=== PATIENT | male | born 1970 | race Caucasian/White ===

== ENCOUNTER 2016-07-12 09:13 | Emergency (ER) | payer MEDICARE, MEDICAID ==
[2016-07-12 09:33] VITALS: BMI 28.9
[2016-07-12 10:00] LABS: AUTOMATED BASOPHIL 0.4 % (0-2); AUTOMATED LYMPH 28.5 % (17-44); AUTOMATED MONOCYTE 7.4 % (3-10); AUTOMATED NEUTROPHIL 61.7 % (45-76); MPV 8.1 fL (7.4-10.4)
--- NOTE | 2016-07-12 10:10 | EDPRACDOC ---
- General Information Chief Complaint: Flu-Like Symptoms Stated Complaint: COUGH Time Seen by Provider: 07/12/16 10:05 Mode Of Arrival: Car Home Medications: Home Medications Clonazepam [Klonopin] 1 mg PO HS 01/23/13 Trazodone HCl 300 mg PO HS 01/23/13 Aripiprazole [Abilify] 10 mg PO HS 12/17/15 Lamotrigine [Lamictal] 200 mg PO BID 12/17/15 Dicyclomine HCl [Bentyl] 10 mg PO TID 02/21/16 Prazosin HCl [Minipress] 2 mg PO QHS 02/21/16 Levofloxacin [Levaquin] 500 mg PO DAILY #7 tab 07/12/16 [place] Carbonate 600 mg PO HS 07/12/16 Morphine Sulfate 15 mg PO Q8H PRN 07/12/16 Pantoprazole Sodium [Protonix] 40 mg PO HS 07/12/16 Tussionex [Tussionex Oral Suspension] 5 ml PO BID PRN #120 ml 07/12/16 Allergies/Adverse Reactions: Allergies Allergy/AdvReac Type Severity Reaction Status Date / Time fluoxetine HCl [From Prozac] Allergy Severe Unknown/See Verified 07/12/16 09:32 Comments venom-honey bee Allergy Intermediate Edema-Gener Verified 07/12/16 09:32 [bee venom (honey bee)] alized - History of Present Illness Onset: 2 MONTHS HPI: PT COMPLAINS OF COUGH PROD OF GREEN PHLEGM, SOBR, WORSENING OVER 2 MTHS, HAS HAD "FEVER" ESPECIALLY AT NIGHT, NO N/V/D. Shortness of Breath: Moderate Relevant History: Reports: None Cough: Reports: Productive, Yellow Rhinorrhea: Reports: Clear Ear Symptoms: Reports: None SOB Worsens with: Reports: Coughing SOB Improves with: Reports: Nothing Recently treated infections:: Denies: Otitis media, Pneumonia, URI Associated Signs and symptoms: Reports: Cough, Earache, Fever, Nasal Symptoms. Denies: Headache, Sore Throat, Nausea, Vomiting, Diarrhea, Myalgia, Rash, Pain with head movement, AMS ED Past Medical History - History Reviewed Yes Nurses notes reviewed and agree except as marked - Patient Medical History Cardiac History: Reports: Hypertension, Cardiac Catheterization, Hypercholesterolemia GI/ History: Reports: Ulcer Musculoskeletal History: Reports: Arthritis (hands) Psychological History: Reports: Bipolar Disorder Additional Past Medical History: Chronic back Pain Surgical History: Reports: Cardiac Catheterization - Family Medical History Reports: Hypertension (mulit-family), Diabetes (brother), Cancer (mother ( thyroid,uterine)), Stroke (father), Cardiac Disorders (father ([place])) - Social Medical History Smoking Status: Heavy tobacco smoker (5 or more cigarettes/day or daily pipe/ cigar) ETOH: None Substance Abuse: None EDM Review of Systems - Review of Systems Constitutional: Fever. negative: Chills Eyes: negative: Blurred Vision, Double Vision Ears: Pain. negative: Drainage Throat: Pain Nose: Congestion, Discharge Respiratory: Cough, Shortness of Breath, Wheezing Cardiovascular: negative: Chest Pain, Palpitations Gastrointestinal: negative: Diarrhea, Nausea, Pain, Vomiting Genitourinary: negative: Dysuria, Frequency Neurological: negative: Dizziness, Headache, Numbness, Weakness Musculoskeletal: No Symptoms Reported Integumentary: No Symptoms Reported - Physical Exam Constitutional: Alert (Awake), No apparent distress Oriented to: Time, Person, Place Last recorded Vital Signs: Last Vital Signs Temp 98.3 F 07/12/16 09:28 Pulse 86 07/12/16 09:28 Resp 18 07/12/16 09:28 BP 140/86 07/12/16 09:28 Pulse Ox 92 07/12/16 09:28 Oxygen Pulse Oxygen Saturation 92 O2 Device Room Air Oxygen Flow Rate Fraction of Inspired Oxygen ( FIO2) - HEENT Head: Normal ( normocephalic) Eye Exam: Normal (PERRL, EOMI, Sclera white) Oropharynx: Normal (Pharynx:Moist without exudate,Gums-no swelling) Tympanic Membrane: Normal ENT EAC: Normal TMJ: Normal Nose: No Symptoms Reported (septum midline) Neck: Normal (FROM, trachea at midline) - Respiratory/Cardiovascular Respiratory: Wheezes. negative: Accessory Muscle Use, Retractions Cardiovascular: Normal (RRR without murmur, gallop or rub) - GI Auscultation: Normal (NABS) Palpation: Normal (Soft,No rebound or guarding, non distended) Tenderness: Non tender Olivier's Sign: Negative - Musculoskeletal Back: Normal (Non-Tender) Extremities: Normal (Normal tone, Pulses 2+ No cyanosis or edema, FROM) - Integumentary Skin: Normal, Warm, Dry Lymphatics: Normal (no adenopathy) - Neurologic Memory Impaired: Normal Motor Function: Normal (Normal tone, Pulses 2+ No cyanosis or edema, FROM) Cranial Nerve: Normal (CN II-X11 intact sensation, strength 5/5) Cerebellar: Normal Mood Description: Normal Perception: Normal ED SOB MDM - Differential Diagnosis Differential Diagnosis: Heart Failure, Pulmonary Embolus, Pnuemonia, Pneumothorax - Re-evaluation Re-evaluation 1 Re-evaluation Time: 11:30 (IMPROVED) Re-evaluation 2 Re-evaluation Time: 13:00 (IMPROVED) - Results Result Diagrams: 07/12/16 09:45 07/12/16 09:45 Results: WBC 8.0 xk/uL (3.8-10.8) 07/12/16 09:45 RBC 4.41 xM/uL (4.70-6.10) L 07/12/16 09:45 Hgb 14.4 g/dL (14.0-18.0) 07/12/16 09:45 Hct 42.4 % (42-52) 07/12/16 09:45 MCV 96 fL (80-94) H 07/12/16 09:45 MCH 32.6 pg (27-32) H 07/12/16 09:45 MCHC 33.8 g/dl (33-36) 07/12/16 09:45 RDW 13.0 % (11.5-14.5) 07/12/16 09:45 Plt Count 189 xk/uL (130-400) 07/12/16 09:45 MPV 8.1 fL (7.4-10.4) 07/12/16 09:45 Neut % (Auto) 61.7 % (45-76) 07/12/16 09:45 Lymph % (Auto) 28.5 % (17-44) 07/12/16 09:45 [place] % (Auto) 7.4 % (3-10) 07/12/16 09:45 Eos % (Auto) 2.0 % (0-5) 07/12/16 09:45 Baso % (Auto) 0.4 % (0-2) 07/12/16 09:45 Absolute Neuts (auto) 4.88 xk/uL (1.7-8.2) 07/12/16 09:45 Absolute Lymphs (auto) 2.24 xk/uL (0.65-4.75) 07/12/16 09:45 Lab Results 07/12/16 09:45 WBC 8.0 RBC 4.41 L Hgb 14.4 Hct 42.4 MCV 96 H MCH 32.6 H MCHC 33.8 RDW 13.0 Plt Count 189 MPV 8.1 Neut % (Auto) 61.7 Lymph % (Auto) 28.5 [place] % (Auto) 7.4 Eos % (Auto) 2.0 Baso % (Auto) 0.4 Absolute Neuts (auto) 4.88 Absolute Lymphs (auto) 2.24 - EKG EKG #1 EKG Time: 09:37 -: Yes EKG interpreted by me Rate: bpm: 86 [place]: Normal Rhythm: NSR Block: None Hypertrophy: None ST: Nonsp Comparison: 11/05/15 (NO CHANGE) - Diagnostic Imaging CXR Image interpreted by: Radiologist Diagnostic Imaging Comments: CHEST - 2 VIEW COMPARISON: 01/23/2013 FINDINGS: Lungs are clear. Heart size and mediastinal contours are within normal limits. No effusion. Visualized skeletal structures are unremarkable. IMPRESSION: No acute cardiopulmonary disease. Decision Time to Discharge: 13:00 - Departure Disposition: Home Condition: Stable Final Diagnosis: Community acquired pneumonia Instructions: Community Acquired Pneumonia (ED) Education/Counseling Given To: Patient Education/Counseling Given Regarding: Diagnosis, Treatment, Prognosis, Follow Up Referrals: Feroz Chris MD [Primary Care Provider] - One Week Prescriptions: Levofloxacin [Levaquin] 500 mg PO DAILY #7 tab Tussionex [Tussionex Oral Suspension] 5 ml PO BID PRN #120 ml PRN Reason: Cough Additional Instructions: REST, DRINK PLENTY OF FLUIDS, PLEASE STOP SMOKING, RETURN TO THE ED FOR ANY WORSENING SYMPTOMS OR CONCERNS.
[2016-07-12] MEDS ORDERED: Albuterol/Ipratropium Neb 3 ML NEB NEB ONE (10:11)
[2016-07-12] MEDS ORDERED: METHYLPREDNISOLONE 125 MG/2 ML VIAL IV ONE (10:11)
[2016-07-12] MEDS ORDERED: NS 1,000 ML IV ONE (10:11)
[2016-07-12 10:15] LABS: BLOOD UREA NITROGEN 8 MG/DL (9-20); CALCIUM 9.4 MG/DL (8.4-10.2); CALCULATED OSMOLALITY 267 MOs/Kg (270-290); CHLORIDE 100 mEq/L (98-107); GLUCOSE 115 MG/DL (70-99); SODIUM LEVEL 139 mEq/L (137-146); TOTAL PROTEIN 7.9 G/DL (6.3-8.2)
--- NOTE | 2016-07-12 10:35 | DIRPT ---
CLINICAL DATA: Cough, shortness of breath x2 months, nightly fever EXAM: CHEST - 2 VIEW COMPARISON: 01/23/2013 FINDINGS: Lungs are clear. Heart size and mediastinal contours are within normal limits. No effusion. Visualized skeletal structures are unremarkable. IMPRESSION: No acute cardiopulmonary disease. Electronically Signed By: Naveen Soares M.D. On: 07/12/2016 10:33
[2016-07-12 10:39] LABS: ABG Draw Site Right Radial; ALLEN'S TEST PASS; TCO2 27.3 MMOL/L (23-27)
[2016-07-12] MEDS ORDERED: Pharmacy Review for Metformin - IV Contrast Given SCH (11:00)
--- NOTE | 2016-07-12 11:38 | DIRPT ---
CLINICAL DATA: Shortness of breath, productive cough, hypoxia worsening for 2 months EXAM: CT ANGIOGRAPHY CHEST WITH CONTRAST TECHNIQUE: Multidetector CT imaging of the chest was performed using the standard protocol during bolus administration of intravenous contrast. Multiplanar CT image reconstructions and MIPs were obtained to evaluate the vascular anatomy. CONTRAST: 80 mL Isovue 370 COMPARISON: None. FINDINGS: There is adequate opacification of the pulmonary arteries. There is no pulmonary embolus. The main pulmonary artery, right main pulmonary artery and left main pulmonary arteries are normal in size. The heart size is normal. There is no pericardial effusion. The thoracic aorta is normal in caliber without dissection. There is no pleural effusion or pneumothorax. There is right lower lobe reticular nodular peripheral interstitial disease. There is a small area of hazy airspace disease in the anterior segment of the right upper lobe. There are small patchy areas of ground-glass opacity in the left upper lobe. There is no axillary, hilar, or mediastinal adenopathy. There is no lytic or blastic osseous lesion. The visualized portions of the upper abdomen are unremarkable. Review of the MIP images confirms the above findings. IMPRESSION: 1. No evidence pulmonary embolus. 2. Right lower lobe reticular nodular peripheral interstitial disease with a small area of hazy airspace disease in the anterior segment of the right upper lobe and smaller patchy areas of ground-glass opacity in the left upper lobe. These findings can be seen with an infectious or inflammatory etiology. Electronically Signed By: Eleanor Cisse On: 07/12/2016 11:35
[2016-07-12] MEDS ORDERED: Levofloxacin 750 mg/150 ml D5W 750 MG/150 ML RTU IV ONE (11:41)
[2016-07-12 13:40] VITALS: BP 129/90; PULSE 73; TEMP 98.6
== END 2016-07-12 13:34 | disposition home or self-care (01) ==
LOC: ED 09:13
DX: J18.9 Pneumonia, unspecified organism (principal)
CPT/HCPCS: 36415; 36600; 71020; 71275; 80053; 82803; 83880; 84484; 85025; 85610; 85730; 87040; 93005; 94640; 96361; 96365; 96366; 96375; 99284; A9698; J1956; J2930; J7620